=== PATIENT | female | born 1955 | race Caucasian/White ===

== ENCOUNTER 2017-06-18 18:56 | Emergency (ER) | payer SELFPAY ==
[~2017-06-18] VITALS: Ht 162.6 cm; Wt 55.0 kg
[~2017-06-18 18:56] MED LIST: CIPR-9 PO; METR-1 PO; REME30TA PO; TRAM50TA PO; VIST50CA PO
[2017-06-18 18:58] VITALS: BP 138/72; PULSE 86; RESP 15; TEMP 98.5; O2SAT 94
--- NOTE | 2017-06-18 19:12 | PD ---
Physical Exam Date Seen by Provider: Jun 18, 2017 Time Seen by Provider: 19:10 Narrative 61 yo female here for left shoulder pain. No fall. She was reaching over and developed the pain. No numbness. Pain is moderate. No prior injuries. Happened today. Worker's comp. Vitals stable in triage. Awaiting bed placement Data Data Last Documented VS Vital Signs Date Time Temp Pulse Resp B/P (MAP) Pulse Ox O2 Delivery O2 Flow Rate FiO2 06/18/17 18:58 98.5 86 15 138/72 (94) 94 Room Air [facility] Medical Record Reviewed: Yes Supervised Visit with JULES: No Wilman Chan Jun 18, 2017 19:12
== END 2017-06-18 20:36 | disposition left against medical advice (07) ==
LOC: NED 18:56
DX: M25.512 Pain in left shoulder (principal); Z53.21 Procedure and treatment not carried out due to patient leaving prior to being seen by health care provider
CPT/HCPCS: 99281

== ENCOUNTER 2017-09-05 21:08 | Emergency (ER) | payer SELFPAY ==
[~2017-09-05] VITALS: Ht 162.6 cm; Wt 60.0 kg
[2017-09-05 21:10] VITALS: BP 170/89; PULSE 95; RESP 16; TEMP 97.9; O2SAT 95
[2017-09-05] MEDS ORDERED: ACYC800T PO (21:47)
--- NOTE | 2017-09-05 21:51 | PD ---
HPI Chief Complaint: Skin Problem Time Seen by Provider: 21:42 Travel History International Travel<30 days: No Contact w/Intl Traveler<30days: No Traveled to known affect area: No History of Present Illness HPI 62-year-old white female presents to emergency department requesting evaluation and treatment of a possible shingles rash. She states that he is developed a slightly raised rash to her right posterior neck over last 12 hours. She states that she had flulike symptoms the day before and feels that this may be shingles. She denies any flu symptoms today. She denies any fever chills, nausea, vomiting, bowel pain today. Symptoms are mild. No other rashes. PFSH Past Medical History Anxiety: Yes Depression: Yes Cardiovascular Problems: Yes (htn not on meds) Diminished Hearing: No Gastrointestinal Disorders: Yes (diverticulitis) Immunizations Current: Yes Tetanus Vaccination: < 5 Years ?: Not Past Surgical History Section: Yes Tonsillectomy: Yes Social History Alcohol Use: Yes (occ) Tobacco Use: Yes (1PPD) Substance Use: No Allergies-Medications (Allergen,Severity, Reaction): Coded Allergies: No Known Allergies (Unverified Adverse Reaction, Unknown, 09/05/17) Reported Meds & Prescriptions Reported Meds & Active Scripts Active Acyclovir 800 Mg Tab 800 Mg PO 5 TIMES A DAY 10 Days Tramadol (Tramadol HCl) 50 Mg Tab 50 Mg PO Q6H PRN Tramadol (Tramadol HCl) 50 Mg Tab 50 Mg PO Q6H PRN Flagyl (Metronidazole) 500 Mg Tab 500 Mg PO BID 10 Days Cipro (Ciprofloxacin HCl) 500 Mg Tab 500 Mg PO BID 10 Days Reported Vistaril (Hydroxyzine Pamoate) 50 Mg Cap 50 Mg PO BID Remeron (Mirtazapine) 30 Mg Tab 30 Mg PO HS Review of Systems General / Constitutional: No: Fever Eyes: No: Visual changes HENT: No: Headaches Cardiovascular: No: Chest Pain or Discomfort Respiratory: No: Shortness of Breath Gastrointestinal: No: Abdominal Pain Genitourinary: No: Dysuria Musculoskeletal: No: Pain Skin: Positive Rash, Positive Itching Neurologic: No: Weakness Psychiatric: No: Depression Endocrine: No: Polydipsia Hematologic/Lymphatic: No: Easy Bruising Physical Exam Narrative GENERAL: This is a well-nourished, well-developed patient, in no apparent distress. SKIN: Patient has an area of mild erythema mole slightly raised papular lesions to the right lateral trapezius. There are no vesicles. No pustules. No fluctuance or pointing., ecchymoses or lesions. Warm and dry. HEAD: Atraumatic. Normocephalic. EYES: PERRL, EOMI, no discharge or injection. No scleral icterus. EARS: Clear NOSE: Nasal turbinates appear normal. THROAT: Mucosa pink and moist. Airway patent. NECK: Trachea midline. supple, moves head freely. LUNGS: Clear to auscultation. CV: Regular in rhythm. ABDOMEN: Soft nontender. EXT: No clubbing cyanosis or edema. Data Data Last Documented VS Vital Signs Date Time Temp Pulse Resp B/P (MAP) Pulse Ox O2 Delivery O2 Flow Rate FiO2 09/05/17 21:10 97.9 95 16 170/89 (116) 95 Room Air MDM Medical Decision Making Medical Screen Exam Complete: Yes Emergency Medical Condition: Yes Medical Record Reviewed: Yes Differential Diagnosis MDM: High Differential diagnoses: Abscess, folliculitis, cellulitis, lymphangitis, abrasion, contact dermatitis, varicella zoster Narrative Course I explained to the patient that her rash does not look classical of shingles. If she develops blistering or vesicles she may fill the prescription for acyclovir. If it does not I suspect this is more of a contact type rash due to the pruritic nature and he can be treated symptomatically with hydrocortisone and Benadryl. Dermatitis Diagnosis Primary Impression: Dermatitis Patient Instructions: General Instructions Additional Instructions: Rest. Local wound care with soap and water. If you develop any blistering or vesicles he may fill your prescription for acyclovir. If he does not develop any blisters or vesicles I suspect this is most likely a contact type rash. I would advise you to use 1% hydrocortisone 3-4 times daily and take Benadryl for itching. Follow-up with a medical doctor in the next 2-3 days for recheck. Med/Other Pt SpecificInfo: Prescription(s) given Scripts Acyclovir (Acyclovir) 800 Mg Tab 800 MG PO 5 TIMES A DAY for Mgmt Viral Infection for 10 Days, TAB 0 Refills Prov: Alaina Mustafa DO 09/05/17 Disposition: 01 DISCHARGE HOME Condition: Stable Fred Flores PA Sep 05, 2017 21:51
== END 2017-09-05 21:59 | disposition home or self-care (01) ==
LOC: NEPK 21:08
DX: L30.9 Dermatitis, unspecified (principal); F41.9 Anxiety disorder, unspecified; F32.9 Major depressive disorder, single episode, unspecified; I10 Essential (primary) hypertension; F17.200 Nicotine dependence, unspecified, uncomplicated
CPT/HCPCS: 99283

== ENCOUNTER 2017-09-08 19:09 | Emergency (ER) | payer SELFPAY ==
[~2017-09-08 19:09] MED LIST changes: +ACYC800T PO
[2017-09-08 19:11] VITALS: BP 137/89; PULSE 103; RESP 16; TEMP 98.4; O2SAT 95
[2017-09-08] MEDS ORDERED: GABA100C4 PO (19:18)
--- NOTE | 2017-09-08 20:26 | PD ---
HPI Chief Complaint: Fall Time Seen by Provider: 20:16 Travel History International Travel<30 days: No Contact w/Intl Traveler<30days: No Traveled to known affect area: No History of Present Illness HPI 62-year-old white female presents to emergency department with complains of left rib pain after a fall on Friday. She states that the pain has been mild but has been persistent. This is a person who had seen after the injury for complain of a skin rash on her neck. She was concerned that it was shingles. She did take the acyclovir with resolution of her rash. She also states that she smokes. She had to call in sick to work today. Pain is mild to moderate. Worse with bending and movement. No shortness of breath or wheezing. No anterior chest pain. No nausea vomiting. No other injuries. History Social History Alcohol Use: Yes (occ) Tobacco Use: Yes (1PPD) Allergies-Medications (Allergen,Severity, Reaction): Coded Allergies: No Known Allergies (Unverified Adverse Reaction, Unknown, 09/08/17) Reported Meds & Prescriptions Reported Meds & Active Scripts Active Tramadol (Tramadol HCl) 50 Mg Tab 50 Mg PO Q6H PRN Reported Gabapentin 100 Mg Cap 100 Mg PO BID Review of Systems General / Constitutional: No: Fever Eyes: No: Visual changes HENT: No: Headaches Cardiovascular: No: Chest Pain or Discomfort Respiratory: Positive: Pleuritic Pain, No: Cough, Shortness of Breath Gastrointestinal: No: Nausea, Diarrhea, Abdominal Pain Genitourinary: No: Dysuria Musculoskeletal: No: Pain Skin: No Rash Neurologic: No: Weakness Psychiatric: No: Depression Endocrine: No: Polydipsia Hematologic/Lymphatic: No: Easy Bruising Physical Exam Narrative GENERAL: Well-developed, well-nourished in no acute distress. Nontoxic appearing. HEAD: Normocephalic, atraumatic. EYES: Pupils equal round and reactive. Extraocular motions intact. No scleral icterus. No injection or drainage. ENT: TMs clear without erythema. The external auditory canals clear. Nose: clear . Posterior pharynx is pink and moist. No tonsillar edema or exudate. Uvula midline. Airway patent. NECK: Trachea midline.Supple, nontender, moves head freely. No central bony tenderness or spasm. CARDIOVASCULAR: Regular rate and rhythm without murmurs, gallops, or rubs. RESPIRATORY: Clear to auscultation. Breath sounds equal bilaterally. No wheezes , rales, or rhonchi. CHEST: Tender left mid axillary line without deformity or crepitance. No retractions or use of accessory muscles. GASTROINTESTINAL: Abdomen soft, non-tender, nondistended. No hepato-splenomegaly , or palpable masses. No guarding. EXTREMITIES: No clubbing, cyanosis, or edema. No joint tenderness, effusion, or edema noted. BACK: Nontender without deformity or crepitance. No flank tenderness. Data Data Last Documented VS Vital Signs Date Time Temp Pulse Resp B/P (MAP) Pulse Ox O2 Delivery O2 Flow Rate FiO2 09/08/17 19:11 98.4 103 16 137/89 (105) 95 MDM Medical Screen Exam Complete: Yes Emergency Medical Condition: No Differential Diagnosis MDM: High Differential diagnoses: Fracture, sprain, strain, dislocation, contusion, neurovascular injury Narrative Course A medical screening exam was performed: At the time of evaluation the presenting medical condition was determined not to be of an emergent nature. The patient was given the option of receiving additional care, but declined. Patient was given options for additional community resources from which to obtain care. The Patient Has Been advised to seek medical attention for their presenting complaint. The patient has been advised to return to the ER at any time if an emergent condition develops. Primary Impression: Encounter for medical screening examination Condition: Fred Huggins Sep 08, 2017 20:26
== END 2017-09-08 20:32 | disposition left against medical advice (07) ==
LOC: NEPK 19:09
DX: R07.81 Pleurodynia (principal); F17.200 Nicotine dependence, unspecified, uncomplicated
CPT/HCPCS: 99281